=== PATIENT | male | born 1965 | race Caucasian/White ===

== ENCOUNTER 2017-01-27 06:07 | Day surgery (SDC) | payer BC ==
[~2017-01-27 06:07] MED LIST: Lactated Ringers 1,000 ML IV SCH
[2017-01-27] MEDS ORDERED: fentaNYL 100 MCG/2 ML SDV ONE (07:39)
[2017-01-27] MEDS ORDERED: Propofol 200 MG/20 ML SDV ONE ×3 (07:39→07:53)
[2017-01-27 08:34] VITALS: BP 113/74
--- NOTE | 2017-01-27 11:30 | OR ---
PREOPERATIVE DIAGNOSES: Screening colonoscopy. Strong family history of colon cancer. POSTOPERATIVE DIAGNOSIS: Normal colonoscopic exam. PROCEDURE PROPOSED: Total flexible colonoscopy. PROCEDURE DONE: Total flexible colonoscopy. INDICATION: This is a 51-year-old gentleman who comes in for his 1st colonoscopic exam. He has a strong family history of his parents with colon cancer and a sister with polyps. He denies any symptomatology. TECHNIQUE: The patient was brought to the endoscopy suite, placed in a left lateral decubitus position. He was sedated with propofol per [facility]. The flexible video colonoscope was then passed transanally and under visualization advanced to the cecum. Examination revealed a normal ascending, transverse, descending, sigmoid, and rectal colon. There was no evidence of any diverticulosis, polyps, colitis, or any other abnormalities. The scope was then withdrawn. The patient tolerated the procedure well. IMPRESSION: 1. Essentially normal colonoscopic exam. 2. Strong family history of colon cancer. PLAN: I do feel that he continued colonic surveillance every 5 years hereafter due to his family history. SCM: 01/27/2017 08:05:07 MODL: 01/27/2017 11:22:47 /[id number]
== END 2017-01-27 09:10 | disposition home or self-care (01) ==
LOC: VM.SDS 06:07
PROVIDERS: ATTEND Surgery
DX: Z12.11 Encounter for screening for malignant neoplasm of colon (principal)
CPT/HCPCS: 45378; 82962; J2704; J3010; J7120

== ENCOUNTER 2020-12-10 16:40 | Emergency (ER) | payer BC ==
[2020-12-10] MEDS ORDERED: Sodium Chloride 0.9% 10 ML Syringe FLUSH PRN (16:51)
[2020-12-10] MEDS ORDERED: Acetaminophen 500 MG Tab PO ONE (16:52)
[2020-12-10] MEDS ORDERED: Lactated Ringers 1,000 ML IV ONE (16:52)
--- NOTE | 2020-12-10 17:14 | EDM.PDOC ---
ED HPI GENERAL MEDICAL PROBLEM - General Chief Complaint: Fever Stated Complaint: GENERAL Time Seen by Provider: 12/10/20 16:45 Source of Information: Reports: Patient History Limitations: Reports: No Limitations - History of Present Illness INITIAL COMMENTS - FREE TEXT/NARRATIVE: Patient comes emergency department today from the clinic where he was referred to the ER as he presented to the clinic with a fever and he was told that due to the time constraints he was unable to be seen in the clinic as it was getting close to the end of the day so he was referred to the emergency department. This patient today shortly after lunch only developed shaking chills throughout his body. It was to the point of uncontrollable shaking and he could not operate his phone. He made an appointment in the clinic at about 4 PM to be seen for his uncontrolled shaking chills. 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 When he was initially seen in the clinic that concern for him having a pulmonary embolism as well as his fever so he was referred to the emergency department as the end of the day is near and unable to assess him. Upon arrival the patient reports that he has generalized malaise but has shaking chills. He feels hot and flushed. He has no headache visual acuity neck pain or neck stiffness. No chest pain shortness of breath difficulty breathing cough or congestion. No back pain. No abdominal pain nausea or vomiting. No hematuria dysuria or urinary frequency. No black or tarry stools. No rash lesions sores or areas of concern that are acutely infectious appearing or bothersome to him today. He does have some chronic scabbing on his lower extremities that he uses clobetasol for. He has had a couple similar episodes of this in the past year. Where he has had a quite high fever and he has been worked up and not found to have anything. He had a similar episode in March 2020 where he initially presented with a cellulitis of the right lower extremity. He was then placed on antibiotics and had recurrent fever after the cellulitis had resolved and they were unable to determine his cause of fever. He denies any recent travel. No exposure to anyone ill. He denies any chronic immunodeficiency type diagnosis Left Middle Thigh Pain Score (Numeric/FACES): 6 - Related Data Allergies Allergy/AdvReac Type Severity Reaction Status Date / Time Penicillins Allergy Other Verified 12/10/20 16:44 Home Meds: Home Meds Clobetasol Propionate [Temovate] 1 applic TOP ASDIRECTED 01/24/17 [History] metFORMIN HCl [Glucophage] 1 tab PO BID 01/24/17 [History] Rosuvastatin Calcium 1 tab PO DAILY 04/20/20 [History] Cefdinir [Omnicef] 300 mg PO BID #20 cap 12/10/20 [Rx] Past Medical History HEENT History: Reports: None Cardiovascular History: Reports: High Cholesterol Respiratory History: Reports: None, Other (See Below) Other Respiratory History: Smoker Gastrointestinal History: Reports: Other (See Below) Other Gastrointestinal History: diverticulitis. constipation related to opiod therapy Genitourinary History: Reports: None, Other (See Below) Other Genitourinary History: Epididymal cyst Musculoskeletal History: Reports: Back Pain, Chronic Other Musculoskeletal History: Recent injury to back- positional Neurological History: Reports: None Psychiatric History: Reports: None Endocrine/Metabolic History: Reports: Other (See Below) Other Endocrine/Metabolic History: impaired fasting blood glucose Hematologic History: Reports: None Immunologic History: Reports: None Oncologic (Cancer) History: Reports: None Dermatologic History: Reports: None - Past Surgical History HEENT Surgical History: Reports: None Cardiovascular Surgical History: Reports: None GI Surgical History: Reports: None Musculoskeletal Surgical History: Reports: None Social & Family History - Tobacco Use Tobacco Use Status *Q: Former Tobacco User Used Tobacco, but Quit: Yes Month/Year Tobacco Last Used: 11/2003 ED ROS GENERAL - Review of Systems Review Of Systems: Comprehensive ROS is negative, except as noted in HPI. ED EXAM, SEPSIS - Physical Exam Exam: See Below Exam Limited By: No Limitations General Appearance: Alert, WD/WN, No Apparent Distress Eye Exam: Bilateral Eye: EOMI, PERRL Ears: Normal External Exam, Normal Canal, Hearing Grossly Normal, Normal TMs Nose: Normal Inspection, Normal Mucosa, No Blood Throat/Mouth: Normal Inspection, Normal Lips, Normal Teeth, Normal Gums, Normal Oropharynx, Normal Voice, No Airway Compromise Head: Atraumatic, Normocephalic Neck: Normal Inspection, Supple, Non-Tender, Full Range of Motion Respiratory/Chest: No Respiratory Distress, Lungs Clear, Normal Breath Sounds, No Accessory Muscle Use, Chest Non-Tender Cardiovascular: Normal Peripheral Pulses, Regular Rate, Rhythm, No Murmur, Tachycardia Peripheral Pulses: 2+: Radial (L), Radial (R), Posterior Tibial (L), Posterior Tibial (R), Dorsalis Pedis (L), Dorsalis Pedis (R) GI/Abdominal Exam: Normal Bowel Sounds, Soft, Non-Tender, Pelvis Stable (Male) Exam: Normal Prostate, Circumcised. No: Inguinal Lymphadenopathy, Urethral Discharge Rectal (Males) Exam: Normal Rectal Tone, Prostate Normal, Black Stool Back: Normal Inspection, Full Range of Motion. No: CVA Tenderness (L), CVA Tenderness (R) Extremities: Normal Inspection, Normal Range of Motion, Non-Tender, No Pedal Edema, Normal Capillary Refill Neurological: Alert, Oriented, CN II-XII Intact, Normal Cognition, Normal Gait, No Motor/Sensory Deficits Psychiatric: Normal Affect, Normal Mood Skin: Warm, Dry, Intact, Normal Color, Other (Extensive skin evaluation head to toe. There is no areas of induration swelling inflammation or acute infectious process. The only concerning process of his skin is on the anterior aspect of his mid tib-fib bilaterally he has some what really appears to be some chronic inflammatory scabbing scaling. There is no acute erythema induration swelling tenderness warmth or exudate.) Lymphatic: Bilateral: No Adenopathy (Groin neck inguinal axillary clavicular) Course - Vital Signs Last Recorded V/S: Last Vital Signs Temp 97.6 F 12/10/20 19:55 Pulse 93 12/10/20 18:44 Resp 14 12/10/20 18:44 BP 117/76 12/10/20 18:44 Pulse Ox 96 12/10/20 18:44 - Orders/Labs/Meds Orders: Active Orders 24 hr Category Date Time Status AKUA W/RFX TO ALL IF POSITIVE [REF] Stat Lab 12/10/20 19:30 Received CMV PCR [REF] Stat Lab 12/10/20 19:30 Received CULTURE BLOOD [BC] Stat Lab 12/10/20 16:53 Received CULTURE BLOOD [BC] Stat Lab 12/10/20 17:34 Received PERCY-GRUBER DNA QUANT, PCR [REF] Stat Lab 12/10/20 19:30 Received LYME DISEASE AB TOTAL IG EIA [REF] Stat Lab 12/10/20 19:30 Received MISC TEST Routine Lab 12/10/20 19:30 Received PROCALCITONIN [REF] Stat Lab 12/10/20 16:53 Received PSA TOTAL%EE [REF] Stat Lab 12/10/20 16:53 Received RHEUMATOID FACTOR [REF] Stat Lab 12/10/20 19:30 Received Blood Culture x2 Reflex Set [OM.PC] Stat Oth 12/10/20 16:51 Ordered Peripheral IV Insertion Adult [OM.PC] Stat Oth 12/10/20 16:51 Ordered Labs: Laboratory Tests 12/10/20 12/10/20 12/10/20 Range/Units 16:53 16:53 16:53 WBC 10.9 H (4.0-10.0) x10^3/uL RBC 4.95 (4.5-6.0) x10^6/uL Hgb 14.6 (14.0-18.0) g/dL Hct 42.6 (40.0-52.0) % MCV 86.1 (78.0-93.0) fL MCH 29.5 (26.0-32.0) pg MCHC 34.3 (32.0-36.0) g/dL RDW Coeff of Almaz 12.5 (10.0-15.0) % Plt Count 149 (130-400) x10^3/uL Neut % (Auto) 81.2 H (50.0-80.0) % Lymph % (Auto) 6.7 L (25.0-50.0) % Mower % (Auto) 10.8 (2.0-11.0) % Eos % (Auto) 0.8 (0.0-4.0) % Baso % (Auto) 0.5 (0.2-1.2) % ESR (0-15) mm/hr D-Dimer, Quantitative (<=0.58) mg/LFEU Sodium 137 (136-145) mmol/L Potassium 3.6 (3.5-5.1) mmol/L Chloride 100 (98-107) mmol/L Carbon Dioxide 25 (21-32) mmol/L Anion Gap 15.6 H (5-15) mmol/L BUN 14 (7-18) mg/dL Creatinine 1.0 (0.70-1.30) mg/dL Est Cr Clr Drug Dosing TNP Estimated GFR (MDRD) > 60 Glucose 102 (74-106) mg/dL Lactic Acid 1.9 (0.4-2.0) mmol/L Calcium 9.3 (8.5-10.1) mg/dL Corrected Calcium 9.22 (8.5-10.1) mg/dL Total Bilirubin 0.8 (0.2-1.0) mg/dL AST 20 (15-37) U/L ALT 28 (16-63) U/L Alkaline Phosphatase 61 (46-116) U/L Lactate Dehydrogenase (85-227) U/L C-Reactive Protein 0.7 (<=0.9) mg/dL Total Protein 7.7 (6.4-8.2) g/dL Albumin 4.1 (3.4-5.0) g/dL Globulin 3.6 Albumin/Globulin Ratio 1.14 Urine Color (YELLOW) Urine Appearance (CLEAR) Urine pH (5.0-8.0) Ur Specific [place] Urine Protein (NEGATIVE) mg/dL Urine Glucose (UA) (NEGATIVE) mg/dL Urine Ketones (NEGATIVE) mg/dL Urine Occult Blood (NEGATIVE) Urine Nitrite (NEGATIVE) Urine Bilirubin (NEGATIVE) Urine Urobilinogen (0.2) EU/dL Ur Leukocyte Esterase (NEGATIVE) Influenza Type A RNA (NEGATIVE) Influenza Type B RNA (NEGATIVE) SARS-CoV-2 RNA (COLTEN) (NEGATIVE) 12/10/20 12/10/20 12/10/20 Range/Units 16:53 16:53 16:53 WBC (4.0-10.0) x10^3/uL RBC (4.5-6.0) x10^6/uL Hgb (14.0-18.0) g/dL Hct (40.0-52.0) % MCV (78.0-93.0) fL MCH (26.0-32.0) pg MCHC (32.0-36.0) g/dL RDW Coeff of Almaz (10.0-15.0) % Plt Count (130-400) x10^3/uL Neut % (Auto) (50.0-80.0) % Lymph % (Auto) (25.0-50.0) % Mower % (Auto) (2.0-11.0) % Eos % (Auto) (0.0-4.0) % Baso % (Auto) (0.2-1.2) % ESR 7 (0-15) mm/hr D-Dimer, Quantitative 0.33 (<=0.58) mg/LFEU Sodium (136-145) mmol/L Potassium (3.5-5.1) mmol/L Chloride (98-107) mmol/L Carbon Dioxide (21-32) mmol/L Anion Gap (5-15) mmol/L BUN (7-18) mg/dL Creatinine (0.70-1.30) mg/dL Est Cr Clr Drug Dosing Estimated GFR (MDRD) Glucose (74-106) mg/dL Lactic Acid (0.4-2.0) mmol/L Calcium (8.5-10.1) mg/dL Corrected Calcium (8.5-10.1) mg/dL Total Bilirubin (0.2-1.0) mg/dL AST (15-37) U/L ALT (16-63) U/L Alkaline Phosphatase (46-116) U/L Lactate Dehydrogenase 198 (85-227) U/L C-Reactive Protein (<=0.9) mg/dL Total Protein (6.4-8.2) g/dL Albumin (3.4-5.0) g/dL Globulin Albumin/Globulin Ratio Urine Color (YELLOW) Urine Appearance (CLEAR) Urine pH (5.0-8.0) Ur Specific [place] Urine Protein (NEGATIVE) mg/dL Urine Glucose (UA) (NEGATIVE) mg/dL Urine Ketones (NEGATIVE) mg/dL Urine Occult Blood (NEGATIVE) Urine Nitrite (NEGATIVE) Urine Bilirubin (NEGATIVE) Urine Urobilinogen (0.2) EU/dL Ur Leukocyte Esterase (NEGATIVE) Influenza Type A RNA (NEGATIVE) Influenza Type B RNA (NEGATIVE) SARS-CoV-2 RNA (COLTEN) (NEGATIVE) 12/10/20 12/10/20 Range/Units 17:02 17:56 WBC (4.0-10.0) x10^3/uL RBC (4.5-6.0) x10^6/uL Hgb (14.0-18.0) g/dL Hct (40.0-52.0) % MCV (78.0-93.0) fL MCH (26.0-32.0) pg MCHC (32.0-36.0) g/dL RDW Coeff of Almaz (10.0-15.0) % Plt Count (130-400) x10^3/uL Neut % (Auto) (50.0-80.0) % Lymph % (Auto) (25.0-50.0) % Mower % (Auto) (2.0-11.0) % Eos % (Auto) (0.0-4.0) % Baso % (Auto) (0.2-1.2) % ESR (0-15) mm/hr D-Dimer, Quantitative (<=0.58) mg/LFEU Sodium (136-145) mmol/L Potassium (3.5-5.1) mmol/L Chloride (98-107) mmol/L Carbon Dioxide (21-32) mmol/L Anion Gap (5-15) mmol/L BUN (7-18) mg/dL Creatinine (0.70-1.30) mg/dL Est Cr Clr Drug Dosing Estimated GFR (MDRD) Glucose (74-106) mg/dL Lactic Acid (0.4-2.0) mmol/L Calcium (8.5-10.1) mg/dL Corrected Calcium (8.5-10.1) mg/dL Total Bilirubin (0.2-1.0) mg/dL AST (15-37) U/L ALT (16-63) U/L Alkaline Phosphatase (46-116) U/L Lactate Dehydrogenase (85-227) U/L C-Reactive Protein (<=0.9) mg/dL Total Protein (6.4-8.2) g/dL Albumin (3.4-5.0) g/dL Globulin Albumin/Globulin Ratio Urine Color Dark yellow H (YELLOW) Urine Appearance Clear (CLEAR) Urine pH 8.5 H (5.0-8.0) Ur Specific [place] 1.020 Urine Protein Negative (NEGATIVE) mg/dL Urine Glucose (UA) Negative (NEGATIVE) mg/dL Urine Ketones Negative (NEGATIVE) mg/dL Urine Occult Blood Negative (NEGATIVE) Urine Nitrite Negative (NEGATIVE) Urine Bilirubin Negative (NEGATIVE) Urine Urobilinogen 0.2 (0.2) EU/dL Ur Leukocyte Esterase Negative (NEGATIVE) Influenza Type A RNA Negative (NEGATIVE) Influenza Type B RNA Negative (NEGATIVE) SARS-CoV-2 RNA (COLTEN) Negative (NEGATIVE) Meds: Medications Discontinued Medications Generic Name Dose Route Start Last Admin Trade Name Ivania PRN Reason Stop Dose Admin Acetaminophen 1,000 mg 12/10/20 16:52 12/10/20 17:00 Tylenol Extra Strength PO 12/10/20 16:53 1,000 mg ONETIME ONE Administration Lactated Ringer's 1,000 mls @ 999 mls/hr 12/10/20 16:52 12/10/20 17:03 Ringers, Lactated IV 12/10/20 17:52 999 mls/hr ONETIME ONE Administration Ketorolac Tromethamine 30 mg 12/10/20 18:53 12/10/20 19:10 Toradol IVPUSH 12/10/20 18:54 30 mg ONETIME ONE Administration Sodium Chloride 10 ml 12/10/20 16:51 Saline Flush FLUSH ASDIRECTED PRN Keep Vein Open - Re-Assessments/Exams Free Text/Narrative Re-Assessment/Exam: IV was established. 1 g Tylenol p.o. LR 1 L wide open. Blood cultures x2 pending. Chest x-ray no acute consolidative concerns. There is a question of a nipple shadow over the right mid lung base. Otherwise unremarkable. Covid negative. Influenza negative. Laboratory evaluation with a mild elevation of the white blood cell count of 10.9, hemoglobin 14.6, platelet count 149. D-dimer negative at 0.33. Comprehensive metabolic panel with a mild elevation of his anion gap at 15.6 otherwise unremarkable. Lactic acid is normal at 1.9. C-reactive protein is normal at 0.7. LDH normal at 198. ESR pending Urine negative for glucose proteins ketones blood nitrites leukocytes or bilirubin His laboratory evaluation is rather unremarkable. He has a mild elevation of his white blood cell count primarily neutrophilia although he has no increase in his inflammatory markers normal lactic acid. This could just be a stress response due to the fever. I really not finding any causes of this quite high fever of 104 in the emergency department. It did improve after the Tylenol. He was also given ibuprofen. I repeated my physical exam head to toe to ensure that I did not miss anything and as well reviewed his HPI once again. He has had some problems with urination in the past and his prostate exam is normal. Really unsure of what is causing this rather large high fever for this patient. He has no real symptomology other than the shaking chills. The lump in his leg is resolved and only lasted for a minute and he has no CP SOB or other signs of PE and his presentation is unconcerning for a PE and D-Dimer is negative. He has had multiple episodes of these in the past. One being related to episode around cellulitis. He is quite concerned for his recurrent of these high fevers over the past couple of years. He has been shrugged off he relates in the clinic and not had further evaluation. I will do some of the testing to include CMV, Percy-Gruber virus, Lyme's, AKUA, as well as procalcitonin which are all send outs. He appears nontoxic appearing. His laboratory evaluation is unremarkable. He might just have some type of viral process that is causing this quite high fever. The only thing that is a possibility as well to is that he has an early bacteria that is entering into his bloodstream from some site that is an identified and the only true breaks in his skin at this time are that his chronic scabbing lesions on his anterior mid tib-fib region. There is no tenderness there is no breaks in the skin otherwise there is no erythema induration swelling or tenderness. I do not want to just [place] treat the patient with antibiotics when I dont have a cause source or site to ensure that he is appropriately managed and followed. He has had multiple episodes of these in the past that have primarily resolved on their own 1 where he was on antibiotics with the cellulitis. I believe that we have done a pretty good work-up for a fever of unknown origin as a send out. This could be just a viral response. At this time over the next 1 to 2 days to do symptomatic management with Tylenol ibuprofen and hydration. I would also like him to contact me in the next couple of days if he has continued problems or unable to control his fever. I will send a prescription for Omnicef 300 mg 1 tab p.o. twice daily for the next 10 days if he does develop a cellulitis of the lower extremities. He can initiate these on his own without consulting me over the phone. If he has the symptoms of a cellulitis or other infection on his skin. We spent a rather extended period of time discussing my concerns of fever of unknown origin with reoccurrence. He is comfortable with this plan at this time and he will contact me in the next couple of days if he has any problems. His questions were answered and he was very comfortable with this plan. Anything new or worse he is to recheck. He needs to follow-up with primary care provider next week for review of his laboratory send out work-up. Departure - Departure Time of Disposition: 19:29 Disposition: Home, Self-Care 01 Clinical Impression: Fever, unknown origin - Discharge Information Prescriptions: Cefdinir [Omnicef] 300 mg PO BID #20 cap Referrals: Rubén Villalta PA-C [Primary Care Provider] - Forms: ED Department Discharge Additional Instructions: Push fluids over the next few days. Tylenol and or Ibuprofen as needed for pain. If unable to control the fever with Tylenol and or Ibuprofen and or new symptoms develop recheck. If you notice any concern of infection to your legs. Omnicef 1 tablet twice daily for 10 days. RX sent to [facility]. Contact me over the next few days if any problems or concerns. Return to the ED if new or worsening symptoms. Follow up in the clinic next week if not improving. Sepsis Event Note (ED) - Evaluation Sepsis Screening Result: No Definite Risk - Focused Exam Vital Signs: Vital Signs Temp Temp Pulse Resp BP Pulse Ox 12/10/20 19:55 97.6 F 12/10/20 19:10 101.4 F H 12/10/20 18:44 103.4 F H 93 14 117/76 96 12/10/20 17:54 103.9 F H 12/10/20 17:30 103.9 F H 12/10/20 17:00 104.6 F H 12/10/20 16:44 104.6 F H 118 H 18 131/88 97 - My Orders Last 24 Hours: My Active Orders 12/10/20 16:51 Blood Culture x2 Reflex Set [OM.PC] Stat Peripheral IV Insertion Adult [OM.PC] Stat 12/10/20 16:53 CULTURE BLOOD [BC] Stat PROCALCITONIN [REF] Stat PSA TOTAL%EE [REF] Stat 12/10/20 17:34 CULTURE BLOOD [BC] Stat 12/10/20 19:30 AKUA W/RFX TO ALL IF POSITIVE [REF] Stat CMV PCR [REF] Stat PERCY-GRUBER DNA QUANT, PCR [REF] Stat LYME DISEASE AB TOTAL IG EIA [REF] Stat MISC TEST Routine RHEUMATOID FACTOR [REF] Stat - Assessment/Plan Last 24 Hours: My Active Orders 12/10/20 16:51 Blood Culture x2 Reflex Set [OM.PC] Stat Peripheral IV Insertion Adult [OM.PC] Stat 12/10/20 16:53 CULTURE BLOOD [BC] Stat PROCALCITONIN [REF] Stat PSA TOTAL%EE [REF] Stat 12/10/20 17:34 CULTURE BLOOD [BC] Stat 12/10/20 19:30 AKUA W/RFX TO ALL IF POSITIVE [REF] Stat CMV PCR [REF] Stat PERCY-GRUBER DNA QUANT, PCR [REF] Stat LYME DISEASE AB TOTAL IG EIA [REF] Stat MISC TEST Routine RHEUMATOID FACTOR [REF] Stat
[2020-12-10 17:36] LABS: ANION GAP 15.6 mmol/L (5-15); CHLORIDE,CL 100 mmol/L (98-107); SODIUM,NA 137 mmol/L (136-145)
[2020-12-10 17:50] LABS: CORONAVIRUS COVID-19 NAA NEGATIVE (NEGATIVE)
--- NOTE | 2020-12-10 18:00 | CR ---
[id number] RAD/RAD Chest PA And Lateral EXAM: FRONTAL AND LATERAL CHEST INDICATION: SHORTNESS OF BREATH, BACK PAIN. COMPARISON: None. DISCUSSION: There is mild height loss in a couple of midthoracic vertebral bodies, favor chronic compression fractures. MRI could provide further assessment if there is clinical evidence of an acute fracture. 10 mm pulmonary nodule versus nipple shadow right lung base. Chest CT or repeat chest radiographs with nipple markers could provide further evaluation. Lungs are borderline hyperinflated. No acute infiltrates. No effusions. Normal heart size. IMPRESSION: 1. Mild mid thoracic compression fractures, favor chronic. 2. 10 mm nodular opacity overlying the right lung base on the frontal view, nipple shadow versus pulmonary nodule. A chest CT or repeat radiographs with nipple markers could provide further evaluation. Regan Mendoza MD 12/10/20 1663 Thank you for allowing us to participate in the care of your patient.
[2020-12-10 18:44] VITALS: BP 117/76; PULSE 93
[2020-12-10] MEDS ORDERED: Ketorolac 30 MG/ML SDV IVPUSH ONE (18:53)
== END 2020-12-10 20:00 | disposition home or self-care (01) ==
LOC: VM.ED 16:40
DX: R50.9 Fever, unspecified (principal); F17.200 Nicotine dependence, unspecified, uncomplicated; E78.00 Pure hypercholesterolemia, unspecified; Z20.822 Contact with and (suspected) exposure to COVID-19; Z88.0 Allergy status to penicillin; Z79.899 Other long term (current) drug therapy
CPT/HCPCS: 0240U; 36415; 71046; 80053; 81003; 83605; 83615; 84145; 84153; 84154; 85025; 85379; 85652; 86038; 86140; 86431; 86618; 87040; 87496; 87799; 96374; 99283-25; 99285; A9270-GY; J1885; J7120

== ENCOUNTER 2022-04-22 07:26 | Day surgery (SDC) | payer BC ==
[2022-04-22] MEDS: Lactated Ringers 1,000 ML IV SCH (07:42)
[2022-04-22] MEDS ORDERED: Propofol 200 MG/20 ML SDV ONE (08:53)
[2022-04-22] MEDS ORDERED: fentaNYL 100 MCG/2 ML SDV ONE (08:53)
[2022-04-22] MEDS ORDERED: Midazolam 1 MG/ML 2 ML SDV ONE (08:53)
[2022-04-22 10:18] VITALS: BP 126/78; PULSE 65
== END 2022-04-22 10:45 | disposition home or self-care (01) ==
LOC: VM.SDS 07:26
PROVIDERS: ATTEND Student in an Organized Health Care Education/Training Program
DX: Z12.11 Encounter for screening for malignant neoplasm of colon (principal); D12.0 Benign neoplasm of cecum; D12.3 Benign neoplasm of transverse colon; Z80.0 Family history of malignant neoplasm of digestive organs; E78.00 Pure hypercholesterolemia, unspecified; Z79.899 Other long term (current) drug therapy; Z87.891 Personal history of nicotine dependence; Z88.0 Allergy status to penicillin
CPT/HCPCS: 00811; J2250; J2704; J3010; J7120